=== PATIENT | male | born 1950 | race African-American/Black ===

== ENCOUNTER 2017-05-22 07:56 | Emergency (ER) | payer MEDICARE, MEDICAID ==
[~2017-05-22] VITALS: Ht 172.7 cm; Wt 110.0 kg
[~2017-05-22 07:56] MED LIST: BENA40TA3 PO; DOCU-150 PO; FURO40TA5 PO; METO25TA6 PO; OMEP20CA10 PO; RIVA10TA PO
[2017-05-22] MEDS ORDERED: IBUPROFEN 800MG TABLET PO ONE (08:30)
[2017-05-22 10:39] VITALS: BP 108/53
== END 2017-05-22 10:40 | disposition home or self-care (01) ==
LOC: ER 07:56
DX: S10.93XA Contusion of unspecified part of neck, initial encounter (principal); S40.012A Contusion of left shoulder, initial encounter; I10 Essential (primary) hypertension; I51.9 Heart disease, unspecified; Z79.01 Long term (current) use of anticoagulants
CPT/HCPCS: 73030; 99284

== ENCOUNTER 2017-07-23 11:21 | Emergency (ER) | payer MEDICARE, MEDICAID ==
[~2017-07-23] VITALS: Ht 167.6 cm; Wt 89.0 kg
[2017-07-23] MEDS ORDERED: ACETAMINOPHEN 500MG TABLET PO ONE (15:15)
[2017-07-23 15:28] VITALS: BP 112/65
== END 2017-07-23 16:09 | disposition home or self-care (01) ==
LOC: ER 12:43
DX: M79.672 Pain in left foot (principal)
CPT/HCPCS: 73630; 99284